=== PATIENT | male | born 1965 | race Caucasian/White ===

== ENCOUNTER → 2017-09-09 | Outpatient (CLI) | payer BC ==
--- NOTE | 2017-09-09 15:56 | XR ---
EXAMINATION TYPE: XR thoracic spine complete DATE OF EXAM: 09/09/2017 COMPARISON: NONE HISTORY: Pain Alignment is anatomic. There is no compression deformities. Multilevel hypertrophic change and degen erative disc disease. No compression deformities. Surgical change involving the cervical spine and th e cervical thoracic junction. Subtle curvature of the spine noted. IMPRESSION: 1. Multilevel degenerative disc disease.
--- NOTE | 2017-09-09 15:57 | XR ---
EXAMINATION TYPE: XR cervical spine comp DATE OF EXAM: 09/09/2017 COMPARISON: NONE HISTORY: Pain TECHNIQUE: Four views are submitted. FINDINGS: The odontoid is intact. There are no compression deformities. The prevertebral soft tissue structur es are within normal limits. Postsurgical change involving the mid and lower cervical spine and uppe r thoracic spine. Alignment near-anatomic. Hypertrophic changes C3-C4. Due to positioning assessment of the neural foramina is limited. Multilevel facet arthropathy noted. IMPRESSION: 1. Postsurgical changes.
== END | disposition home or self-care (01) ==
LOC: RADXRMAIN 15:33
PROVIDERS: ATTEND Family Medicine
DX: M51.34 Other intervertebral disc degeneration, thoracic region (principal); Z98.890 Other specified postprocedural states
CPT/HCPCS: 72050; 72072

== ENCOUNTER → 2020-03-03 | Outpatient (CLI) | payer BC ==
--- NOTE | 2020-03-03 13:03 | US ---
EXAMINATION TYPE: US kidneys/renal and bladder DATE OF EXAM: 03/03/2020 COMPARISON: US CLINICAL HISTORY: I12.9 HTN with CKD,N18.30. Pt states recent abnormal renal labs EXAM MEASUREMENTS: Right Kidney: 11.0 x 5.8 x 5.6 cm Left Kidney: 11.3 x 6.0 x 5.0 cm Right Kidney: Appeared wnl Left Kidney: Appeared wnl Bladder: wnl Bilateral Jets seen: Only left jet visualized IMPRESSION: Normal renal ultrasound
== END | disposition home or self-care (01) ==
LOC: RADUSWWP 12:15
PROVIDERS: ATTEND Family Medicine
DX: I12.9 Hypertensive chronic kidney disease with stage 1 through stage 4 chronic kidney disease, or unspecified chronic kidney disease (principal); N18.30 Chronic kidney disease, stage 3 unspecified
CPT/HCPCS: 76770

== ENCOUNTER → 2020-05-03 | Outpatient (CLI) | payer BC, MEDICAID ==
--- NOTE | 2020-05-03 16:30 | CONS ---
CONSULTATION REASON FOR CONSULTATION: Sleep apnea. This is a 54-year-old male patient who was instructed to come to [facility] for further evaluation regarding sleep apnea. His , who sleeps next to him and happens to be the patient's bed partner, has described typical features of obstructive sleep apnea where the patient has loud snoring, sleep fragmentation, and she has also witnessed apneas occurring throughout the nighttime. The patient reports mouth breathing. He wakes up with a dry mouth. He goes to bed around midnight and wakes up at 7:30 a.m. in the morning. He has excessive fatigue and sleepiness during the day. He wakes up occasionally choking and gasping and he has also nocturnal reflux/aspiration. Occasional grinding of the teeth. He is averaging around 7-8 hours of sleep. It takes him a few minutes to fall asleep. No history of any insomnia. Current Chetek score is 10. No sleep paralysis. No hallucinations. No cataplexy. No history of any motor vehicle accident because of feeling drowsy or sleepy. No restlessness in the lower extremities. No anxiety. No depression. PAST MEDICAL HISTORY: Hypertension and acid reflux. PAST SURGICAL HISTORY: Past surgical history includes vasectomy, cervical diskectomy, C4 through C7, and right meniscal repair. DRUG ALLERGIES: PENICILLINS. OUTPATIENT MEDICATION: Outpatient medication includes Norvasc 10 mg p.o. daily, omeprazole 40 mg p.o. daily. SOCIAL HISTORY: The patient is a nonsmoker. No history of alcoholism. No history of IV drugs. FAMILY HISTORY: His brother has obstructive sleep apnea and has undergone jaw advancement surgery. Father had colon cancer and he has . REVIEW OF SYSTEMS: Fourteen-point review of systems was done; positive findings are all mentioned above in the history of present illness. No history of any psychiatric disorder. No anxiety. No depression. No substance abuse. No head trauma. No meningitis. No neuropathy. No chest pain, shortness of breath or asthmatic symptoms. No angina. No palpitations. No dysuria, frequency or urgency. PHYSICAL EXAMINATION: BP is 128/91, pulse 84, respirations 16, temperature 97.8, saturation 98% on room air. Height is 5 feet 10 inches. Weight is 194. Neck size is 16 inches. BMI 27.6. Chetek score is 10. GENERAL APPEARANCE: Calm, comfortable. HEAD: Atraumatic, normocephalic. NECK: Supple. No JVD. No goiter or neck masses. Mallampati class IV. LUNGS: Clear to auscultation. HEART: Heart sounds are regular rate and rhythm. Normal S1, S2. No S3, S4. No murmurs. ABDOMEN: Soft, nontender. No organomegaly. EXTREMITIES: No edema. No cyanosis or clubbing. NEUROLOGIC: Awake and alert. There is no focal neurological deficit. PSYCHIATRY: Negative for anxiety or depression. IMPRESSION: 1. Chronic hypersomnia; Chetek score of 10. 2. Loud snoring. 3. Witnessed apneas in addition to nocturnal episodes of aspiration and heartburn; could be related to obstructive sleep apnea. 4. Hypertension. 5. Chronic acid reflux. 6. Significant crowding of posterior pharynx with a Mallampati class IV. The patient also has a slight overbite. PLAN: 1. Encourage weight loss. 2. Sleep on the side. 3. Keep the head of the bed elevated at all times. 4. Avoid late dinners. 5. Optimize sleep hygiene measures. 6. Proceed with a screening polysomnogram to rule out underlying obstructive sleep apnea. Will make further recommendations based on results of the sleep study. MMODL / IJN: [id number] /
== END | disposition home or self-care (01) ==
LOC: SLEEP 14:03
PROVIDERS: ATTEND Family Medicine
DX: G47.33 Obstructive sleep apnea (adult) (pediatric) (principal); I10 Essential (primary) hypertension; K21.9 Gastro-esophageal reflux disease without esophagitis
CPT/HCPCS: 99211

== ENCOUNTER → 2020-11-09 | Outpatient (CLI) | payer MEDICAID | END | disposition home or self-care (01) | LOC: LABWHC1 14:10 | PROVIDERS: ATTEND Emergency Medicine | DX: Z20.822 Contact with and (suspected) exposure to COVID-19 (principal) | CPT/HCPCS: 87635; C9803 ==

== ENCOUNTER → 2020-11-10 | Outpatient (CLI) | payer MEDICAID | END | disposition home or self-care (01) | LOC: LABWHC1 16:09 | PROVIDERS: ATTEND Emergency Medicine | DX: Z20.822 Contact with and (suspected) exposure to COVID-19 (principal) | CPT/HCPCS: U0003; C9803; U0005 ==

== ENCOUNTER → 2021-03-16 | Outpatient (CLI) | payer MEDICAID, OTHER | END | disposition home or self-care (01) | LOC: LABWHC1 10:59 | PROVIDERS: ATTEND Emergency Medicine | DX: Z20.822 Contact with and (suspected) exposure to COVID-19 (principal) | CPT/HCPCS: 87635 ==

== ENCOUNTER → 2021-03-17 | Outpatient (CLI) | payer MEDICAID, OTHER | END | disposition home or self-care (01) | LOC: LABWHC1 13:33 | PROVIDERS: ATTEND Emergency Medicine | DX: U07.1 COVID-19 (principal) | CPT/HCPCS: 87635 ==

== ENCOUNTER → 2021-04-24 | Outpatient (CLI) | payer MEDICAID | END | disposition home or self-care (01) | LOC: LABWHC1 11:36 | PROVIDERS: ATTEND Family Medicine | DX: U09.9 Post COVID-19 condition, unspecified (principal); R06.00 Dyspnea, unspecified | CPT/HCPCS: 36415; 85379 ==

== ENCOUNTER → 2022-11-14 | Outpatient (CLI) | payer BC ==
--- NOTE | 2022-11-14 10:15 | CT ---
EXAMINATION TYPE: CT heart w calcium score DATE OF EXAM: 11/14/2022 COMPARISON: HISTORY: Screening for cardiovascular disorder. 213.9 CT DLP: 67.2 mGycm Automated exposure control for dose reduction was used. CT CALCIUM SCORING Coronary calcium is a marker for plaque (fatty deposits) in a blood vessel or atherosclerosis (harden ing of the arteries). The presence and amount of calcium detected in a coronary artery by the CT sca n, indicates the presence and amount of atherosclerotic plaque. These calcium deposits appear years before the development of heart disease symptoms such as chest pain and shortness of breath. A calcium score is computed for each of the coronary arteries based upon the volume and density of th e calcium deposits. This can be referred to as your calcified plaque burden. It does not correspond directly to the percentage of narrowing in the artery but does correlate with the severity of the un derlying coronary atherosclerosis. PROCEDURE TECHNIQUE - Prospective Gating was used. Slice thickness: 3mm. Density threshold (HU): 130, Pixel threshold: 3, Algorithm: discrete. RESULTS Region: LM Calcium Score ([place]): 0 Volume (mm3): 0 Mass (g): 0 Region: RCA Calcium Score ([place]): 0 Volume (mm3): 0 Mass (g): 0 Region: LAD Calcium Score ([place]): 15.83 Volume (mm3): 22.08 Mass (g): 7.36 Region: CX Calcium Score ([place]): 0 Volume (mm3): 0 Mass (g): 0 Region: PDA Calcium Score ([place]): 0 Volume (mm3): 0 Mass (g): 0 Total: Calcium Score ([place]): 15.83 Volume (mm3): 22.08 Mass (g): 7.36 TOTAL CALCIUM SCORE: 15.83 IMPRESSION: Calcium Score: 15.83 Implication: Definite, at least mild atherosclerotic plaque Risk of Coronary Artery Disease: Mild or minimal coronary narrowings likely CALCIUM SCORE IMPLICATION RISK OF C ORONARY ARTERY DISEASE 0 No identifiable plaque Very low, generally less than 5% 1-10 Minimal identifiable plaque Very unlikely, less than 10% 11-100 Definite, at least mild atherosclerotic plaque Mild or m inimal coronary narrowings likely 101-400 Definite, at least moderate atherosclerotic plaque Mild coronary ar nikole disease highly likely, significant narrowing possible 401 or Higher Extensive atherosclerotic plaque High lik elihood of at least one significant coronary narrowing
== END | disposition home or self-care (01) ==
LOC: RADCTMAIN 09:07
PROVIDERS: ATTEND Family Medicine
DX: Z13.6 Encounter for screening for cardiovascular disorders (principal)
CPT/HCPCS: 75571

== ENCOUNTER → 2023-01-07 | Outpatient (CLI) | payer BC ==
--- NOTE | 2023-01-14 12:11 | CT ---
EXAMINATION TYPE: CT angio chest DATE OF EXAM: 01/07/2023 COMPARISON: Radiograph 04/24/2021 HISTORY: 57-year-old male I26.99, I25.10, R/O PE. Pt had recent unresponsive episode for unknown reas ons for 10 mins. TECHNIQUE: Contiguous axial scanning of the chest performed with IV Contrast, patient injected with 1 00 ml mL of Isovue 370. Coronal/sagittal MIP reconstructions performed. CT DLP: 347.8 mGycm Automated exposure control for dose reduction was used. FINDINGS: The heart is normal size without pericardial effusion. No flattening of the interventricular septum. Small amount of refluxing contrast into the IVC. Mild LAD coronary artery calcifications. Borderline ectatic upper descending thoracic aorta at 3.0 cm. Conventional arch vessel branching reuben rere. No thoracic lymphadenopathy by CT size criteria. Satisfactory opacification of the pulmonary arterial system without evidence for pulmonary embolus. Mild biapical pleural-parenchymal scarring. 4 mm subpleural pulmonary nodule posterolateral left lower lobe. Visualized upper abdomen shows no gross abnormality. Bones: Levoconvex curvature along the upper third thoracic spine. ACDF hardware. IMPRESSION: 1. NO EVIDENCE FOR PULMONARY EMBOLUS. 2. A 4 MM SUBPLEURAL LEFT LOWER LOBE PULMONARY NODULE. RECOMMEND FOLLOW-UP CT CHEST IN 6 MONTHS TO RE ASSESS.
== END | disposition home or self-care (01) ==
LOC: RADCTMAIN 14:46
PROVIDERS: ATTEND Internal Medicine Interventional Cardiology
DX: I26.99 Other pulmonary embolism without acute cor pulmonale (principal); I25.10 Atherosclerotic heart disease of native coronary artery without angina pectoris; R91.1 Solitary pulmonary nodule
CPT/HCPCS: 71275; Q9967

== ENCOUNTER → 2024-04-11 | Outpatient (CLI) | payer BC ==
--- NOTE | 2024-04-11 11:14 | CT ---
EXAMINATION TYPE: CT chest w con DATE OF EXAM: 04/11/2024 9:22 AM COMPARISON: CT chest 01/07/2023. CLINICAL INDICATION: Male, 58 years old with history of R91.1 PULM NODULE; PHH, f/u nodule TECHNIQUE: Multiple axial images were obtained through the chest. Sagittal and coronal reformats were created for review. MIP was performed on a separate workstation. Contrast used:100ml mL of Isovue 300 with IV Contrast (None if empty) Oral contrast used: (None if empty) CT DLP: 327.4 mGycm, Automated exposure control for dose reduction was used. FINDINGS: LUNGS/ PLEURA: No focal consolidation, pneumothorax or pleural effusion. Stable left lower lobe 3 mm pulmonary nodule. No new or enlarging pulmonary nodules. AIRWAY: Patent and unremarkable. HEART: Size within normal limits. MEDIASTINUM: No gross evidence of adenopathy. VASCULATURE: No aortic aneurysm. MUSCULOSKELETAL: No acute osseous abnormalities SOFT TISSUES/LYMPH NODES: Unremarkable. LOWER NECK: No significant findings. UPPER ABDOMEN: No significant findings. IMPRESSION: 1. No acute process. 2. Stable left lower lobe 3 mm pulmonary nodule. [facility], , 04/11/2024 11:12 AM
== END | disposition home or self-care (01) ==
LOC: RADCTMAIN 08:32
PROVIDERS: ATTEND Family Medicine
DX: R91.1 Solitary pulmonary nodule (principal)
CPT/HCPCS: 71260; Q9967